=== PATIENT | male | born 1985 | race Caucasian/White ===

== ENCOUNTER 2025-08-22 19:13 | Emergency (ER) | payer OTHER ==
[~2025-08-22] VITALS: Ht 177.8 cm; Wt 87.7 kg
[2025-08-22 19:35] VITALS: BP 159/79; PULSE 62; RESP 16; TEMP 98.105288; O2SAT 100
[2025-08-22] MEDS: IBUPROFEN 600 MG TABLET PO ONE (20:51)
== END 2025-08-22 21:00 ==
LOC: EMS 19:19
DX: S09.90XA Unspecified injury of head, initial encounter (principal); H11.32 Conjunctival hemorrhage, left eye; Z87.891 Personal history of nicotine dependence; Y04.0XXA Assault by unarmed brawl or fight, initial encounter; Y93.89 Activity, other specified; Y92.89 Other specified places as the place of occurrence of the external cause; Y99.8 Other external cause status
CPT/HCPCS: 70450; 70486; 72125; 99284